=== PATIENT | male | born 1960 | race Caucasian/White ===

== ENCOUNTER 2020-01-17 17:55 | Inpatient (IN) | payer MEDICARE, MEDICAID, SELFPAY ==
[2020-01-17 17:57] VITALS: BP 143/110; PULSE 112; RESP 18; TEMP 36.6; O2SAT 95; BMI 25.8
[2020-01-17 18:41] LABS: Add Urine Microscopic? NO
[2020-01-17 18:44] LABS: Basophils # 0.1 10^3/uL (0.0-0.1); Basophils % 0.7 %; Eosinophils # 0.3 10^3/uL (0.0-0.8); Eosinophils % 2.6 %; Hematocrit 47.5 % (42.0-52.0); Hemoglobin 15.4 g/dL (11.7-16.6); Lymphocytes # 2.1 10^3/uL (0.8-4.8); Lymphocytes % 20.3 %; Mean Corpuscular HGB Conc 32.4 g/dL (30.0-36.0); Mean Corpuscular Hemoglobin 28.1 pg (28.0-34.0); Mean Corpuscular Volume 86.5 fL (80-94); Monocytes # 0.7 10^3/uL (0.2-0.9); Monocytes % 6.5 %; Neutrophils # 7.07 10^3/uL (1.8-7.7); Neutrophils % 69.7 %; Nucleated Red Blood Cells % 0 %; Platelet Count 385 10^3/cmm (130-400); Red Blood Count 5.49 10^6/uL (4.1-5.3); Red Cell Distribution Width 13.1 % (12.1-15.1); White Blood Count 10.1 10^3/uL (4.0-10.0)
[2020-01-17] MEDS: OLANZapine 10 mg VIAL IM (18:56)
[2020-01-17 19:00] LABS: Urine Appearance Clear (CLEAR); Urine Color Yellow (Yellow); pH Urine 5 (5-7)
[2020-01-17 19:01] LABS: Amphetamines Screen Urine Negative (Negative); Barbiturates Screen Urine Negative (Negative); Benzodiazepines Screen Urine Negative (Negative); Bilirubin Urine Neg (Negative); Blood Urine Neg (Negative); Cocaine Screen Urine Negative (Negative); Glucose Urine UA Norm (Normal); Ketones Urine Negative (Negative); Leukocyte Esterase Urine Negative (Negative); Nitrate Urine Negative (Negative); Opiate Screen Urine Negative (Negative); PCP Screen Urine Negative (Negative); Protein Urine Neg (Negative); THC Screen Urine Negative (Negative); Urobilinogen Urine Norm (Negative)
[2020-01-17 19:06] LABS: Alanine Aminotransferase 19 U/L (0-41); Albumin Level 4.5 g/dL (3.5-5.2); Alkaline Phosphatase 70 IU/L (40-130); Anion Gap 12.7 (5-19); Aspartate Amino Transferase 14 U/L (0-40); Blood Urea Nitrogen 5 mg/dL (6-20); Calcium 9.1 mg/dL (8.5-10.5); Carbon Dioxide 29 mmol/L (22-29); Chloride 100 mmol/L (98-107); Globulin 2.9 g/dL (1.3-4.6); Glucose 97 mg/dL (65-115); Osmolality Calculated 283 mOsm/kg (285-295); Potassium 3.7 mmol/L (3.5-5.1); Sodium 138 mmol/L (136-145); Total Bilirubin 0.3 mg/dL (0.15-1.2); Total Protein 7.4 g/dL (6.6-8.7)
[2020-01-17 19:08] LABS: Acetaminophen < 5.0 ug/mL (10-30); Alcohol Level < 10 mg/dL (0-10); Salicylate < 0.3 mg/dL (3-10)
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
[2020-01-17 19:24] VITALS: BP 126/82; PULSE 98; RESP 17; TEMP 37.3; O2SAT 95
[2020-01-17 20:50] VITALS: BP 118/71; PULSE 94; RESP 16; TEMP 37; O2SAT 95
[2020-01-17 21:16] VITALS: BP 126/88; PULSE 101; RESP 18; TEMP 36.7; O2SAT 98
[2020-01-18 06:00] VITALS: BP 101/68; PULSE 96; RESP 20; TEMP 36.8; O2SAT 93
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
[2020-01-18 14:00] VITALS: BP 130/76; PULSE 76; RESP 18; TEMP 36.6; O2SAT 99
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
[2020-01-18 21:40] VITALS: BP 123/76; PULSE 86; RESP 17; TEMP 36.5; O2SAT 96
[2020-01-19 06:00] VITALS: RESP 13
--- NOTE | 2020-01-19 11:41 | P.PN_ITS ---
Subjective NPU Subjective: Interval history: Hollis presents today with the same added to this yesterday really losing his temper cursing yelling and making threats towards this life insurance underwriter. He is convinced that everyone is against him and trying to kill him. He denies any need for any mental health services and is unwilling to consider any of the medication options that were discussed. Discussed with him the likely 96-hour hold that would be created given his level of impairment and lack of cooperation. Mental Status Exam MSE Comments: This is a well-nourished, well-developed white male with scrubs on, unkempt/disheveled with limited grooming and eye contact followed by very intense eye contact. No abnormal movements except for significant psychomotor agitation. Uncooperative with exam in moderate to severe distress. Speech was increased rate and volume. Mood described as get the hell out of here affect congruent. Thought process linear at times disorganized at others. Thought content: Patient denied suicidal or homicidal ideation, there were no delusions reported with clear paranoid and persecutory delusions expressed. He did not endorse auditory or visual hallucinations but at times appeared to be attending to internal stimuli. Attention and concentration were impaired and memory was unreliable but none were formally tested. He is alert and oriented to person and place. Insight and judgment are impaired, impulse control is impaired. Vitals/I&O/Wt Last Vital Signs Temp 98.3 F 01/19/20 19:28 Pulse 104 H 01/19/20 19:28 Resp 20 H 01/19/20 19:28 BP 108/68 01/19/20 19:28 Pulse Ox 93 01/19/20 19:28 Data NPU : 01/17/20 18:35 01/17/20 18:35 A&P Additional A&P Information (1) Acute psychosis: This is a 59-year-old white male who presents with active psychosis and irritability on no psychiatric medication with a negative UDS. 1. Continue current medication. We will attempt to offer medication each day. 2. Continue every 15 minute checks for safety. 3. Encourage individual, group and milieu therapy. 4. We will need to get collateral commitment. Insistent on medication will likely need to put him on a hold and await a 21-day hold to be able to medicate because he is clearly appearing unsafe for discharge. Involuntary Hold Information 96 Hour Hold: 96 Hour Involuntary Admission: No Attestations NPU Medical Necessity Statement*: Inpatient hospitalization is medically necessary and the clinically appropriate intervention at this time. We will monitor medications and make changes as indicated. Likely length of stay 7 to 10 days. Coding Level of Care Code Acute [employer] Professional for [place] Grant
[2020-01-19 14:00] VITALS: BP 113/68; PULSE 96; RESP 20; TEMP 36.7; O2SAT 95
[2020-01-19 14:50] VITALS: BP 133/82; PULSE 88; RESP 13; TEMP 37.2; O2SAT 99
[2020-01-19 19:28] VITALS: BP 108/68; PULSE 104; RESP 20; TEMP 36.8; O2SAT 93
[2020-01-20 06:00] VITALS: BP 109/67; PULSE 73; RESP 16; TEMP 36.4; O2SAT 93
[2020-01-20] MEDS: ARIPiprazole 10 mg Tablet PO (12:43)
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
[2020-01-20 14:00] VITALS: BP 110/72; PULSE 90; RESP 18; TEMP 37.2; O2SAT 96
[2020-01-20 21:57] VITALS: BP 106/68; PULSE 89; RESP 17; TEMP 36.9; O2SAT 95
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
[2020-01-21 06:00] VITALS: BP 98/59; PULSE 100; RESP 17; TEMP 36.8; O2SAT 96
[2020-01-21] MEDS: ARIPiprazole 10 mg Tablet PO ×2 (11:06→15:22)
--- NOTE | 2020-01-21 12:37 | PM.NPN ---
Subjective NPU Subjective: Interval history: Hollis appeared to regress as far as his progress in treatment. He went from taking the oral medication without reservation to refusal. His refusal is very much Steet and his paranoia about everyone being out to get him in doing vile things to him. He ultimately said that he regretted to what we are going to do. He was advised that the likely outcome of these choices he was making would be being placed on a 96-hour hold. Mental Status Exam MSE Comments: This is a well-nourished, well-developed white male with scrubs on, with limited grooming and adequate eye contact. No abnormal movements except for mild psychomotor retardation. More cooperative with exam in mild distress. Speech was more normal rate and volume. Mood described as return to do which are going to do, affect slightly despondent. Thought process linear at times disorganized at others. Thought content: Patient denied suicidal or homicidal ideation, there were no delusions reported with clear paranoid and persecutory delusions expressed. He did not endorse auditory or visual hallucinations but at times appeared to be attending to internal stimuli. Attention and concentration were impaired and memory was unreliable but none were formally tested. He is alert and oriented to person and place. Insight and judgment are impaired, impulse control is impaired. Vitals/I&O/Wt Last Vital Signs Temp 97.9 F 01/21/20 22:00 Pulse 90 01/21/20 22:00 Resp 18 01/21/20 22:00 BP 111/75 01/21/20 22:00 Pulse Ox 96 01/21/20 22:00 Data NPU : 01/17/20 18:35 01/17/20 18:35 A&P Additional A&P Information (1) Acute psychosis: This is a 59-year-old white male who presents with active psychosis and irritability on no psychiatric medication with a negative UDS. 1. Continue current medication. Continue to encourage him to resume the Abilify but at this point he is refusing it. 2. Continue every 15 minute checks for safety. 3. Encourage individual, group and milieu therapy. 4. We will need to get collateral commitment. Insistent on medication will likely need to put him on a hold and await a 21-day hold to be able to medicate because he is clearly appearing unsafe for discharge. Involuntary Hold Information 96 Hour Hold: 96 Hour Involuntary Admission: No Attestations NPU Medical Necessity Statement*: Inpatient hospitalization is medically necessary and the clinically appropriate intervention at this time. We will monitor medications and make changes as indicated. Likely length of stay 7 to 10 days. Coding Level of Care Code Acute Utilization Reviewer for [place] Grant
[2020-01-21 13:35] VITALS: BP 96/61; PULSE 89; RESP 18; TEMP 37; O2SAT 96
--- NOTE | 2020-01-21 16:16 | PC.SOCIAL ---
*IMM* Rather not attempt to give *IMM* as the patient is very paranoid and psychotic. I do not want to aggravate the patient.
[2020-01-21 22:00] VITALS: BP 111/75; PULSE 90; RESP 18; TEMP 36.6; O2SAT 96
--- NOTE | 2020-01-22 03:36 | PC.NURSE ---
pm assessment pt is very delusional this evening. He believes that the staff are actually the [place] people and they are out to get him. He said that he is in deep trouble. His father, the senator, his sister, and extension edger all have his number and are out to get him. He is paranoid. Pt believes that spaceships are landing and coming to take his body parts and take over the world. He said, oh, what a mess I am in. Go ahead and put me on that cross right there , i have made my own whirlpool of shit to swim in. :No one can help me.
[2020-01-22 05:52] VITALS: BP 115/78; PULSE 90; RESP 17; TEMP 36.5; O2SAT 95
[2020-01-22] MEDS: ARIPiprazole 10 mg Tablet PO (08:59)
[2020-01-22 14:00] VITALS: BP 113/73; PULSE 93; RESP 20; TEMP 37.5; O2SAT 93
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
[2020-01-22 20:07] VITALS: BP 118/82; PULSE 74; RESP 15; TEMP 36.7; O2SAT 94
[2020-01-23 06:00] VITALS: BP 112/72; PULSE 81; RESP 17; TEMP 36.7; O2SAT 94
[2020-01-23] MEDS: ARIPiprazole 10 mg Tablet PO (08:17)
[2020-01-23 13:26] VITALS: BP 136/82; PULSE 89; RESP 18; TEMP 37.1
--- NOTE | 2020-01-23 13:49 | P.PN_ITS ---
Subjective NPU Subjective: Interval history: Hollis presented today having another better day from a standpoint of taking his medication and being less agitated at the world. He continued to discuss persecutory delusions and none so wrong. He endorsed wanting to go outside and have a cigarette and discussed possible discharge at some point and we continue to review the fact that him taking his medication daily gives him the best chance of discharge. He reports he is eating okay and sleep is fine. Mental Status Exam MSE Comments: This is a well-nourished, well-developed white male with scrubs on, with limited grooming and adequate eye contact. No abnormal movements except for mild psychomotor retardation. More cooperative with exam in mild distress. Speech was more normal rate and volume. Mood described as fine, affect less irritable. Thought process linear at times disorganized at others, but improving and organization overall. Thought content: Patient denied suicidal or homicidal ideation, there were no delusions reported with clear paranoid and persecutory delusions expressed. He did not endorse auditory or visual hallucinations but at times appeared to be attending to internal stimuli. Attention and concentration were impaired and memory was unreliable but none were formally tested. He is alert and oriented to person and place. Insight and judgment are impaired, impulse control is impaired. Vitals/I&O/Wt Last Vital Signs Temp 98.7 F 01/23/20 13:26 Pulse 89 01/23/20 13:26 Resp 18 01/23/20 13:26 BP 136/82 01/23/20 13:26 Pulse Ox 94 01/23/20 06:00 Data NPU : 01/17/20 18:35 01/17/20 18:35 A&P Additional A&P Information (1) Acute psychosis: This is a 59-year-old white male who presents with active psychosis and irritability on no psychiatric medication with a negative UDS. 1. Continue current medication. Increase Abilify to 15 mg p.o. every morning 2. Continue every 15 minute checks for safety. 3. Encourage individual, group and milieu therapy. 4. We will need to get collateral commitment. Insistent on medication will likely need to put him on a hold and await a 21-day hold to be able to medicate because he is clearly appearing unsafe for discharge. Involuntary Hold Information 96 Hour Hold: 96 Hour Involuntary Admission: No Attestations NPU Medical Necessity Statement*: Inpatient hospitalization is medically necessary and the clinically appropriate intervention at this time. We will monitor medications and make changes as indicated. Likely length of stay 6-9 days. Coding Level of Care Code Acute Service Advocate Contact for Geneva Grant
[2020-01-23 20:35] VITALS: BP 109/70; PULSE 79; RESP 17; TEMP 36.6; O2SAT 95
[2020-01-24 06:00] VITALS: BP 112/71; PULSE 78; RESP 15; TEMP 36.7; O2SAT 97
[2020-01-24] MEDS: ARIPiprazole 30 mg Tablet 15 MG PO (08:17)
--- NOTE | 2020-01-24 11:07 | PM.NPN ---
Subjective NPU Subjective: Interval history: Hollis presents today continuing to take his Abilify, and started to talk about possible discharge when possible. Sat down with him for at least 20 minutes and he spent almost the entire time ranting about all the things that have been done to him and how he believes that people are experimenting on him and the rest of us. He reported how he feels chips and devices have been implanted in his body and all kinds of other conspiracies. We discussed the possibility of him doing an injection and he is very resistant to that idea. Mental Status Exam MSE Comments: This is a well-nourished, well-developed white male with scrubs on, with limited grooming and adequate eye contact. No abnormal movements except for mild psychomotor retardation. More cooperative with exam in mild distress. Speech was more normal rate and volume. Mood described as better, affect less irritable. Thought process linear at times disorganized at others, but improving and organization overall. Thought content: Patient denied suicidal or homicidal ideation, there were no delusions reported with clear paranoid and persecutory delusions expressed. He did not endorse auditory or visual hallucinations but at times appeared to be attending to internal stimuli. Attention and concentration were impaired and memory was unreliable but none were formally tested. He is alert and oriented to person and place. Insight and judgment are impaired, impulse control is impaired. Vitals/I&O/Wt Last Vital Signs Temp 98.0 F 01/24/20 06:00 Pulse 78 01/24/20 06:00 Resp 15 01/24/20 06:00 BP 112/71 01/24/20 06:00 Pulse Ox 97 01/24/20 06:00 Weight last 48 hrs Weight 81.647 kg Data NPU : 01/17/20 18:35 01/17/20 18:35 A&P Additional A&P Information (1) Acute psychosis: This is a 59-year-old white male who presents with active psychosis and irritability on no psychiatric medication with a negative UDS. 1. Continue current medication. 2. Continue every 15 minute checks for safety. 3. Encourage individual, group and milieu therapy. 4. We will need to get collateral commitment. Insistent on medication will likely need to put him on a hold and await a 21-day hold to be able to medicate because he is clearly appearing unsafe for discharge. Involuntary Hold Information 96 Hour Hold: 96 Hour Involuntary Admission: No Attestations NPU Medical Necessity Statement*: Inpatient hospitalization is medically necessary and the clinically appropriate intervention at this time. We will monitor medications and make changes as indicated. Likely length of stay 5-8 days. Coding Level of Care Code Acute Bank Teller Machine Mechanic for [place] Grant
[2020-01-24 13:40] VITALS: BP 111/70; PULSE 89; RESP 18; TEMP 36.8; O2SAT 96
[2020-01-24 20:23] VITALS: BP 122/78; PULSE 78; RESP 19; TEMP 36.7; O2SAT 96
[2020-01-25 06:00] VITALS: BP 143/75; PULSE 74; RESP 17; TEMP 36.5; O2SAT 95
[2020-01-25] MEDS: ARIPiprazole 30 mg Tablet 15 MG PO (08:33)
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
[2020-01-25 14:00] VITALS: BP 128/74; PULSE 103; RESP 22; TEMP 37.6; O2SAT 97
[2020-01-25] MEDS: paliperidone palmitate 234 mg Syringe IM (17:13)
--- NOTE | 2020-01-25 17:14 | PC.NURSE ---
JEANNE SUSTENNA 234 MG GIVEN IM IN RIGHT DELTOID. PT EDUCATED ON MED GIVEN & VERBALIZED UNDERSTANDING. WILL CONT TO MONITOR INJECTION SITE FOR ANY REDNESS, SWELLING, OR IRRITATION. LOT [id number] EXP 06/2021
[2020-01-25 20:30] VITALS: BP 111/72; PULSE 82; RESP 17; TEMP 38.1; O2SAT 95
--- NOTE | 2020-01-26 02:07 | PC.NURSE ---
Pt cruz Shafer spent quite a long time at the nurses station talking to the staff randy. He is much improved and less delusional this evening. He stated. I am feeling better, they may be out to get me but I dont think they will. when talking to him about music, his interests, his appearance, and his stay on the unit he is able to carry on a coherent conversation. Pt interacted with staff and other patients. He shows concern for others, even became tearful as two other patients told me about their losses and circumstances. He touched one on the shoulder and verbally encouraged him. Overall, he is much improved.
[2020-01-26 06:00] VITALS: BP 119/81; PULSE 83; RESP 18; TEMP 36.4; O2SAT 95
[2020-01-26] MEDS: ARIPiprazole 30 mg Tablet 15 MG PO (08:13)
--- NOTE | 2020-01-26 12:23 | P.PN_ITS ---
Subjective NPU Subjective: Interval history: Hollis presents today less interested in the idea is of traveling to distant places to help with this or that. Gone are the continued ideas about going to [place] to help with [place] relief. His focus turned to getting his car and getting to [place]. His plan is to go to a long-term or even a place where he had to pay and start to regain his stability. He continues to sleep fine and is eating okay. We discussed the possibility of discharge tomorrow. Mental Status Exam MSE Comments: This is a well-nourished, well-developed white male with scrubs on, with adequate grooming and eye contact. No abnormal movements. More cooperative with exam in no acute distress. Speech was more normal rate and volume. Mood described as okay/ready to get out of here, affect brighter. Thought process mostly organized. Thought content: Patient denied suicidal or homicidal ideation, there were no delusions reported with paranoia and persecutory delusions less on the surface. He denied auditory or visual hallucinations. Attention and concentration were intact and memory was more reliable but none were formally tested. He is alert and oriented to person and place, he still struggles with the purpose of being here and acknowledging him having delusional thinking. Insight and judgment are limited, but improving impulse control is improving. Vitals/I&O/Wt Last Vital Signs Temp 98.6 F 01/26/20 20:44 Pulse 90 01/26/20 20:44 Resp 16 01/26/20 20:44 BP 131/79 01/26/20 20:44 Pulse Ox 94 01/26/20 20:44 Data NPU : 01/17/20 18:35 01/17/20 18:35 A&P Assessment and plan (1) Schizophrenia: Status: Acute Additional A&P Information (2) Acute psychosis: This is a 59-year-old white male who presents with active psychosis and irritability on no psychiatric medication with a negative UDS. 1. Continue current medication. 2. Continue every 15 minute checks for safety. 3. Encourage individual, group and milieu therapy. 4. Plan for discharge in the next 48 hours. Involuntary Hold Information 96 Hour Hold: 96 Hour Involuntary Admission: No Attestations NPU Medical Necessity Statement*: Inpatient hospitalization is medically necessary and the clinically appropriate intervention at this time. We will monitor medi cations and make changes as indicated. Likely length of stay 1-3 days. Coding Level of Care Code Acute Tractor Operator Laser Leveling for Chg Fwd Diagnoses Schizophrenia F20.9
[2020-01-26 14:00] VITALS: BP 117/73; PULSE 88; RESP 18; TEMP 37.2; O2SAT 96
[2020-01-26 20:44] VITALS: BP 131/79; PULSE 90; RESP 16; TEMP 37; O2SAT 94
[2020-01-27 06:00] VITALS: BP 126/76; PULSE 87; RESP 15; TEMP 36.5; O2SAT 98
[2020-01-27] MEDS: ARIPiprazole 30 mg Tablet 15 MG PO (08:06)
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
== END 2020-01-27 12:30 | disposition home or self-care (01) | DRG 885 ==
LOC: ER 18:32 → NP 19:32
PROVIDERS: Admitting Provider Psychiatry & Neurology Psychiatry; Emergency Provider Family Medicine; Visit Provider Psychiatry & Neurology Psychiatry
DX: F20.9 Schizophrenia, unspecified (principal); F10.20 Alcohol dependence, uncomplicated
CPT/HCPCS: 12345; 80053; 80306; 80307; 81003; 85025; 96372; 99284; J3490; Q3014